=== PATIENT | female | born 1995 | race African-American/Black ===

== ENCOUNTER 2016-12-04 18:50 | Emergency (ER) | payer OTHER ==
[2016-12-04 19:44] VITALS: BP 124/85
--- NOTE | 2016-12-04 20:16 | UC ---
Complaint Female HPI - HPI Summary HPI Summary: pt presents with c/o "pelvic cramping" X 1-2 days. Pt reports that LMP was on 11/23/16 that lasted 5 days typical cycle is 7 days. Pt sattes that she "spotted" bright red blood for 2-3 days needing to wear a feminine pad and changing it only once. Denies unusual vaginal discharge or change in sexual partners. c/o of pelvic cramping that are "similar to menstrual cramps" - History Of Current Complaint Chief Complaint: UCGU Stated Complaint: PERSONAL Time Seen by Provider: 12/04/16 19:39 Hx Obtained From: Patient Hx Last Menstrual Period: 11/23/16 ?: No Onset/Duration: Gradual Onset, Lasting Days Timing: Intermittent, Lasting Minutes Severity Initially: Mild Severity Currently: Mild Character: Cramping Associated Signs And Symptoms: Positive: Negative - Allergies/Home Medications Allergies/Adverse Reactions: Allergies Allergy/AdvReac Type Severity Reaction Status Date / Time Dicyclomine [From Bentyl] Allergy Shakes Verified 12/04/16 19:40 laxative Allergy Altered Uncoded 12/04/16 19:40 Mental Status PMH/Surg Hx/FS Hx/Imm Hx - Additional Past Medical History Additional PMH: ovarian cyst Previously Healthy: Yes Endocrine History Of: Reports: Diabetes - pre Denies: Thyroid Disease Cardiovascular History Of: Denies: Cardiac Disorders, Hypertension Respiratory History Of: Reports: Asthma - Surgical History Surgical History: Yes Surgery Procedure, Year, and Place: D&C, 2012, [facility] [place] - Family History Known Family History: Positive: None, Cardiac Disease, Hypertension, Diabetes - Social History Alcohol Use: Occasionally Substance Use Type: None Smoking Status (MU): Never Smoked Tobacco - Immunization History Most Recent Influenza Vaccination: Not the 2015/2016 Season Review of Systems Constitutional: Negative Skin: Negative Eyes: Negative ENT: Negative Respiratory: Negative Cardiovascular: Negative Gastrointestinal: Abdominal Pain Genitourinary: Other - cramping Motor: Negative Neurovascular: Negative Musculoskeletal: Negative Neurological: Negative Psychological: Negative All Other Systems Reviewed And Are Negative: Yes Physical Exam Triage Information Reviewed: Yes Appearance: Well-Appearing Vital Signs: Initial Vital Signs Temp 97.9 F 12/04/16 19:37 Pulse 88 12/04/16 19:37 Resp 16 12/04/16 19:37 BP 124/85 12/04/16 19:37 Pulse Ox 100 12/04/16 19:37 Vital Signs Reviewed: Yes Neck exam: Normal Respiratory Exam: Normal Cardiovascular Exam: Normal Abdomen Description: Positive: Other: - negative CVA bilateral Musculoskeletal Exam: Normal Neurological Exam: Normal Psychological Exam: Normal Skin Exam: Normal Complaint Female Dx - Differential Dx/Diagnosis Differential Diagnosis/HQI/PQRI: Ovarian Cyst, Other Provider Diagnoses: pelvic pain. ovarian cyst history Discharge - Discharge Plan Condition: Stable Disposition: HOME Patient Education Materials: Pelvic Pain in Women (ED) Referrals: Luis A Leonard MD [Medical Doctor] - Felice Sommers PA [Primary Care Provider] -
== END 2016-12-04 20:25 | disposition home or self-care (01) ==
LOC: UCCORT 18:50
DX: R10.2 Pelvic and perineal pain (principal); R73.03 Prediabetes; Z87.42 Personal history of other diseases of the female genital tract; Z88.8 Allergy status to other drugs, medicaments and biological substances
CPT/HCPCS: 81025; 87491; 87591; 99211; G0463

== ENCOUNTER 2017-01-22 11:32 | Emergency (ER) | payer OTHER ==
[2017-01-22 12:40] VITALS: BP 109/62
--- NOTE | 2017-01-22 13:05 | UC ---
Respiratory Complaint HPI - HPI Summary HPI Summary: 21 yo female with asthma presents with a 5 day hx of sinus symptoms now with chest tightness/cough/and has had to use her rescue inhaler - History of Current Complaint Chief Complaint: UCRespiratory Stated Complaint: ASTHMA FLARE UP,SOB Time Seen by Provider: 01/22/17 12:52 Hx Obtained From: Patient Hx Last Menstrual Period: 12/23/16 Onset/Duration: Gradual Onset, Lasting Hours Timing: Constant Severity Initially: Moderate Severity Currently: Mild Pain Intensity: 0 Pain Scale Used: 0-10 Numeric Character: Cough: Nonproductive Aggravating Factors: Exertion, Deep Breaths Alleviating Factors: Bronchodilator Associated Signs And Symptoms: Positive: Wheezing, Nasal Congestion, Sinus Discomfort Related History: Similar Episode/Dx as: - bronchitis - Allergies/Home Medications Allergies/Adverse Reactions: Allergies Allergy/AdvReac Type Severity Reaction Status Date / Time Dicyclomine [From Bentyl] Allergy Shakes Verified 01/22/17 12:31 laxative Allergy Altered Uncoded 01/22/17 12:31 Mental Status PMH/Surg Hx/FS Hx/Imm Hx Previously Healthy: Yes Endocrine History Of: Reports: Diabetes - pre Denies: Thyroid Disease Cardiovascular History Of: Denies: Cardiac Disorders, Hypertension Respiratory History Of: Reports: Asthma, Bronchitis, Pneumonia - Surgical History Surgical History: Yes Surgery Procedure, Year, and Place: D&C, 2012, [facility] [place] - Family History Known Family History: Positive: Cardiac Disease, Hypertension, Diabetes, Respiratory Disease - Social History Alcohol Use: None Substance Use Type: None Smoking Status (MU): Former Smoker Type: Cigarettes Have You Smoked in the Last Year: Yes When Did the Patient Quit Smoking/Using Tobacco: 6 MONTHS AGO - Immunization History Most Recent Influenza Vaccination: JUL 2016 Review of Systems Constitutional: Negative Skin: Negative Eyes: Negative ENT: Nasal Discharge Respiratory: Cough Cardiovascular: Negative Gastrointestinal: Negative Genitourinary: Negative Motor: Negative Neurovascular: Negative Musculoskeletal: Negative Neurological: Negative Psychological: Negative All Other Systems Reviewed And Are Negative: Yes Physical Exam Triage Information Reviewed: Yes Appearance: Well-Appearing, No Pain Distress, Well-Nourished Vital Signs: Initial Vital Signs Temp 98.4 F 01/22/17 12:32 Pulse 70 01/22/17 12:32 Resp 20 01/22/17 12:32 BP 109/62 01/22/17 12:32 Pulse Ox 100 01/22/17 12:32 Vital Signs Reviewed: Yes Eyes: Positive: Conjunctiva Clear ENT Exam: Normal Dental Exam: Normal Neck: Positive: Supple, Nontender Respiratory: Positive: No respiratory distress, No accessory muscle use, Wheezing - with forced expiration only Cardiovascular: Positive: RRR Abdomen Description: Positive: No Organomegaly, Soft Bowel Sounds: Positive: Present Musculoskeletal: Positive: ROM Intact, No Edema Neurological: Positive: Alert Psychological Exam: Normal Skin Exam: Normal UC Diagnostic Evaluation - Laboratory O2 Sat by Pulse Oximetry: 100 - normal/not hypoxic Respiratory Course/Dx - Differential Dx/Diagnosis Provider Diagnoses: acute asthmatic bronchitis Discharge - Discharge Plan Condition: Stable Disposition: HOME Prescriptions: Azithromycin TAB* [Zithromax TAB*] 250 mg PO DAILY #6 tab Prednisone [Deltasone] 40 mg PO DAILY #10 tab Patient Education Materials: Acute Bronchitis (ED) Forms: *Work Release Referrals: CORNELIO Cortes [Primary Care Provider] - If Needed (I suggest recheck next week) Additional Instructions: use your inhaler as directed return for worsening symptoms
== END 2017-01-22 13:10 | disposition home or self-care (01) ==
LOC: UCCORT 11:32
DX: J45.909 Unspecified asthma, uncomplicated (principal); R73.03 Prediabetes; Z87.891 Personal history of nicotine dependence
CPT/HCPCS: 99212; G0463

== ENCOUNTER 2017-01-28 16:32 | Emergency (ER) | payer OTHER ==
[2017-01-28] MEDS ORDERED: NS 0.9% 1000 ML* 1,000 ML IV ONE (17:54)
[2017-01-28] MEDS ORDERED: Ondansetron INJ* 2 MG/ML VIAL IV ONE (17:54)
[2017-01-28 18:15] LABS: Hematocrit 41 % (35-47); Hemoglobin 13.5 g/dl (12.0-16.0); Mean Corpuscular HGB Conc 33 g/dl (31-36); Mean Corpuscular Hemoglobin 30 pg (27-31); Mean Corpuscular Volume 90 fL (80-97); Mean Platelet Volume 7 um3 (7.4-10.4); Red Blood Count 4.53 10^6/ul (4.0-5.4); Red Cell Distribution Width 12 % (10.5-15); White Blood Count 10.2 10^3/ul (3.5-10.8)
[2017-01-28 18:18] LABS: Urine Bilirubin Negative (Negative); Urine Glucose Negative (Negative); Urine Nitrite Negative (Negative)
[2017-01-28 18:33] LABS: ALT 14 U/L (7-52); AST 15 U/L (13-39); Albumin 4.4 g/dL (3.2-5.2); Alkaline Phosphatase 59 U/L (34-104); Anion Gap 1 mmol/L (2-11); BUN/Creatinine Ratio 11.3 (8-20); Blood Urea Nitrogen 9 mg/dL (6-24); CO2 Carbon Dioxide 28 mmol/L (22-32); Calcium 9.6 mg/dL (8.6-10.3); Chloride 103 mmol/L (101-111); EGFR African American 114.3 (>60); EGFR Non-African American 88.9 (>60); Globulin 3.9 g/dL (2-4); Glucose 78 mg/dL (70-100); Lipase 28 U/L (11.0-82.0); Potassium 3.6 mmol/L (3.5-5.0); Sodium 132 mmol/L (133-145); Total Protein 8.3 g/dL (6.4-8.9)
--- NOTE | 2017-01-28 18:41 | ED ---
Abdominal Pain/Female - HPI Summary HPI Summary: 21F presents with RLQ pain for about a week. She admits to n/v. She states this is similar to the pain has had with ovarian cyst. She states menses is a week late. She denies any diarrhea or constipation. She also admits to urinary frequency and urgency. She denies any hematuria or dysuria. She states that pain has not changed locations. She denies any previous abdominal surgeries. She is concern potentially . She denies any vaginal discharge or history of STDs. - History of Current Complaint Chief Complaint: EDAbdPain Stated Complaint: ABD PAIN/VOMITING Time Seen by Provider: 01/28/17 17:50 Hx Last Menstrual Period: 12/23/16 Allergies/Adverse Reactions: Allergies Allergy/AdvReac Type Severity Reaction Status Date / Time Dicyclomine [From Bentyl] Allergy Shakes Verified 01/22/17 12:31 laxative Allergy Altered Uncoded 01/22/17 12:31 Mental Status PMH/Surg Hx/FS Hx/Imm Hx Endocrine/Hematology History: Reports: Hx Diabetes - pre Denies: Hx Thyroid Disease Cardiovascular History: Denies: Hx Hypertension Respiratory History: Reports: Hx Asthma, Hx Pneumonia - Surgical History Surgery Procedure, Year, and Place: D&C, 2012, [facility] [place] Infectious Disease History: No Infectious Disease History: Denies: Traveled Outside the [place] in Last 30 Days - Family History Known Family History: Positive: Cardiac Disease, Hypertension, Diabetes, Respiratory Disease - Social History Alcohol Use: None Substance Use Type: Reports: None Smoking Status (MU): Former Smoker Type: Cigarettes Have You Smoked in the Last Year: Yes Review of Systems Negative: Fever Negative: Chest Pain Negative: Shortness Of Breath Positive: Abdominal Pain - RLQ pain, Vomiting, Nausea. Negative: Diarrhea Positive: frequency. Negative: dysuria All Other Systems Reviewed And Are Negative: Yes Physical Exam Triage Information Reviewed: Yes Vital Signs On Initial Exam: Initial Vitals Temp Pulse Resp BP Pulse Ox 98.7 F 101 20 129/85 100 01/28/17 16:39 01/28/17 16:39 01/28/17 16:39 01/28/17 16:39 01/28/17 16:39 Vital Signs Reviewed: Yes Appearance: Positive: Well-Appearing Skin: Positive: Warm, Dry Head/Face: Positive: Normal Head/Face Inspection Eyes: Positive: Normal, Conjunctiva Clear ENT: Positive: Normal ENT inspection, Pharynx normal, TMs normal Respiratory/Lung Sounds: Positive: Clear to Auscultation, Breath Sounds Present Cardiovascular: Positive: Normal, RRR Abdomen Description: Positive: Soft, Other: - mild tenderness in rlq, no rebound , neg rovsings, obturator. Negative: Guarding Bowel Sounds: Positive: Present Diagnostics - Vital Signs Vital Signs Temp Pulse Resp BP Pulse Ox 01/28/17 18:11 98.7 F 73 22 110/71 100 01/28/17 16:39 98.7 F 101 20 129/85 100 - Laboratory Lab Results: Lab Results 01/28/17 01/28/17 01/28/17 Range/Units 18:05 18:05 18:05 WBC 10.2 (3.5-10.8) 10^3/ul RBC 4.53 (4.0-5.4) 10^6/ul Hgb 13.5 (12.0-16.0) g/dl Hct 41 (35-47) % MCV 90 (80-97) fL MCH 30 (27-31) pg MCHC 33 (31-36) g/dl RDW 12 (10.5-15) % Plt Count 346 (150-450) 10^3/ul MPV 7 L (7.4-10.4) um3 Neut % (Auto) 43.4 (38-83) % Lymph % (Auto) 40.8 (25-47) % Dickinson % (Auto) 10.9 H (1-9) % Eos % (Auto) 3.6 (0-6) % Baso % (Auto) 1.3 (0-2) % Absolute Neuts (auto) 4.4 (1.5-7.7) 10^3/ul Absolute Lymphs (auto) 4.1 (1.0-4.8) 10^3/ul Absolute Monos (auto) 1.1 H (0-0.8) 10^3/ul Absolute Eos (auto) 0.4 (0-0.6) 10^3/ul Absolute Basos (auto) 0.1 (0-0.2) 10^3/ul Absolute Nucleated RBC 0.01 10^3/ul Nucleated RBC % 0.1 Sodium 132 L (133-145) mmol/L Potassium 3.6 (3.5-5.0) mmol/L Chloride 103 (101-111) mmol/L Carbon Dioxide 28 (22-32) mmol/L Anion Gap 1 L (2-11) mmol/L BUN 9 (6-24) mg/dL Creatinine 0.80 (0.51-0.95) mg/dL Est GFR ( Amer) 114.3 (>60) Est GFR (Non-Af Amer) 88.9 (>60) BUN/Creatinine Ratio 11.3 (8-20) Glucose 78 (70-100) mg/dL Calcium 9.6 (8.6-10.3) mg/dL Total Bilirubin 0.30 (0.2-1.0) mg/dL AST 15 (13-39) U/L ALT 14 (7-52) U/L Alkaline Phosphatase 59 (34-104) U/L C-React Prot High Sens 0.48 mg/L Total Protein 8.3 (6.4-8.9) g/dL Albumin 4.4 (3.2-5.2) g/dL Globulin 3.9 (2-4) g/dL Albumin/Globulin Ratio 1.1 (1-3) Lipase 28 (11.0-82.0) U/L Beta HCG, Quant Pending Urine Color Straw Urine Appearance Clear Urine pH 7.0 (5-9) Ur Specific [place] 1.008 L (1.010-1.030) Urine Protein Negative (Negative) Urine Ketones Negative (Negative) Urine Blood Negative (Negative) Urine Nitrate Negative (Negative) Urine Bilirubin Negative (Negative) Urine Urobilinogen Negative (Negative) Ur Leukocyte Esterase Negative (Negative) Urine Glucose Negative (Negative) Result Diagrams: 01/28/17 18:05 01/28/17 18:05 Lab Statement: Any lab studies that have been ordered have been reviewed, and results considered in the medical decision making process. - Ultrasound No standard instances Ultrasound Interpretation: No Acute Changes - IMPRESSION: THE FLUID MOST CONSISTENT WITH PHYSIOLOGIC FREE FLUID. MULTIPLE SMALL FOLLICLES Ultrasound Interpretation Completed By: Radiologist Abdominal Pain Fem Course/Dx - Course Course Of Treatment: 21F presents with RLQ pain, n/v, urinary frequency for a week. states similiar to pain had with ovarian cyst. on exam mild tenderness in RLQ with no rebound, neg rovsings. labs: normal, u/a normal, u/s normal no cyst. discussed doing a pelvic but patient states does not believe has STD and would not like a pelvic exam. discussed results with patient. stated that labs do not support appendicitis but only definitive test is to do CT. patient states would rather observe and if gets worst will come back for CT. gave zofran for nausea and told to follow up with primary. patient understands and agrees with plan - Diagnoses Differential Diagnosis: Positive: Appendicitis, Ovarian Cyst, Urinary Tract Infection Provider Diagnoses: Abdominal pain Discharge - Discharge Plan Condition: Good Disposition: HOME Prescriptions: Ondansetron ODT TAB* [Zofran 4 MG Odt TAB*] 4 mg PO Q6H PRN #12 tab.odt PRN Reason: Nausea Patient Education Materials: Abdominal Pain (ED) Referrals: CORNELIO Cortes [Primary Care Provider] - Additional Instructions: Take zofran every 6 hours as needed for nausea Drink small amounts of fluid as tolerated When able to eat follow BRAT diet: Bananas, rice, applesauce, toast Take ibuprofen or Tylenol for pain as needed every 6 hours Follow up with primary within 5 days Return to ED if develop fever, abdominal pain becomes severe or any new or worsening symptoms
--- NOTE | 2017-01-28 19:46 | RAD ---
INDICATION: Right lower quadrant pain COMPARISON: None TECHNIQUE: Longitudinal and transverse transvaginal scans of the pelvis were obtained. FINDINGS: Uterus: The uterus is normal in size. There are no focal masses. The uterus measures 5.6 x 3.3 x 4.7 cm. The uterus is retroflexed. Endometrial thickness: The endometrial thickness is measured at 0.7 cm. . Free fluid: There is free fluid in both adnexa. Ovaries: The ovaries are normal in size. The right ovary measures 3.0 x 1.7 x 2.3 cm. The left ovary measures 3.2 x 2.1 x 2.7 cm. There are small follicles bilaterally.. Doppler interrogation demonstrates flow to each ovary. Other: None IMPRESSION: THE FLUID MOST CONSISTENT WITH PHYSIOLOGIC FREE FLUID. MULTIPLE SMALL FOLLICLES
[2017-01-28 20:21] VITALS: BP 114/65
== END 2017-01-28 20:20 | disposition home or self-care (01) ==
LOC: ED 16:32
DX: R10.31 Right lower quadrant pain (principal); Z87.891 Personal history of nicotine dependence; R73.03 Prediabetes; J45.909 Unspecified asthma, uncomplicated; R11.0 Nausea
CPT/HCPCS: 36415; 76830; 80053; 81003; 83690; 84702; 85025; 86141; 96360; 96374; 99283; J2405

== ENCOUNTER 2017-04-19 01:49 | Emergency (ER) | payer OTHER ==
--- NOTE | 2017-04-19 02:33 | ED ---
Abdominal Pain/Female - HPI Summary HPI Summary: 22 female presents with complaints of lower abdominal pain that began 1 week ago and has worsened over the last day. She was unable to sleep tonight due to the pain. She describes it as sharp and stabbing. Worse over suprapubic area but also pain on the right and left lower quadrants. Admits to spotting that began 2 days ago. LMP March 12. Unknown status. LBM was today and normal without blood. Denies nausea/vomiting, diarrhea, constipation, fever/ chills, difficulty breathing and chest pain. Tried taking ibuprofen 800mg at 5pm today without relief. Has history of ovarian cysts. Was 2 years ago and had a D&C. Has history of ovarian cysts, last one ~1 year ago. No other medical problems. No medications. Denies urinary symptoms, genitalia symptoms, vaginal discharge, odor or itching. Denies STD history. Gets testing at OBGYN. Has been eating and drinking. - History of Current Complaint Hx Obtained From: Patient Hx Last Menstrual Period: 12/23/16 Onset/Duration: Sudden Onset, Lasting Weeks, Still Present, Worse Since Timing: Constant Severity Initially: Mild Severity Currently: Moderate Pain Intensity: 8 Pain Scale Used: 0-10 Numeric Location: Discrete At: RLQ, Discrete At: LLQ, Suprapubic Radiates: Yes Radiates to: Back - lower back Character: Sharp, Cramping, Other: - stabbing Aggravating Factor(s): Nothing Alleviating Factor(s): Other: - warm bath Associated Signs and Symptoms: Positive: Back Pain, Vaginal Bleeding - "spotting ". Negative: Fever, Chest Pain, Constipation, Blood in Stool, Urinary Symptoms , Vaginal Discharge, Nausea, Vomiting, Diarrhea - Risk Factors Ovarian Torsion Risk Factor: Ovarian Cysts/Tumors <Maribel Luna - Last Filed: 04/19/17 02:39> <Luis A Brooks - Last Filed: 04/19/17 05:59> - History of Current Complaint Chief Complaint: EDAbdPain Stated Complaint: ABD PAIN/SPOTTING Time Seen by Provider: 04/19/17 02:17 Allergies/Adverse Reactions: Allergies Allergy/AdvReac Type Severity Reaction Status Date / Time Dicyclomine [From Bentyl] Allergy Shakes Verified 04/19/17 02:21 laxative Allergy Altered Uncoded 04/19/17 02:21 Mental Status PMH/Surg Hx/FS Hx/Imm Hx Endocrine/Hematology History: Reports: Hx Diabetes - pre Denies: Hx Thyroid Disease Cardiovascular History: Denies: Hx Hypertension Respiratory History: Reports: Hx Asthma, Hx Pneumonia - Surgical History Surgery Procedure, Year, and Place: D&C, 2012, [facility] - Immunization History Date of Tetanus Vaccine: unk Date of Influenza Vaccine: none Immunizations Up to Date: Yes Infectious Disease History: No Infectious Disease History: Denies: Traveled Outside the [place] in Last 30 Days - Family History Known Family History: Positive: Cardiac Disease, Hypertension, Diabetes, Respiratory Disease - Social History Alcohol Use: None Substance Use Type: Reports: None Smoking Status (MU): Former Smoker Type: Cigarettes Have You Smoked in the Last Year: Yes <Maribel Luna - Last Filed: 04/19/17 02:39> Review of Systems Constitutional: Negative Cardiovascular: Negative Respiratory: Negative Positive: Abdominal Pain Genitourinary: Negative Musculoskeletal: Negative Neurological: Negative All Other Systems Reviewed And Are Negative: Yes <Maribel Luna - Last Filed: 04/19/17 02:39> All Other Systems Reviewed And Are Negative: Yes <Luis A Brooks - Last Filed: 04/19/17 05:59> Physical Exam Triage Information Reviewed: Yes Vital Signs On Initial Exam: Initial Vitals Temp Pulse Resp BP Pulse Ox 97.4 F 81 20 142/88 100 04/19/17 01:51 04/19/17 01:51 04/19/17 01:51 04/19/17 01:51 04/19/17 01:51 elevated BP noted, patient was in pain. Vital Signs Reviewed: Yes Appearance: Positive: Well-Appearing, Well-Nourished, Pain Distress - mild Skin: Positive: Skin Color Reflects Adequate Perfusion, Dry, Other - no belgica signs, open wounds or crepitus. Negative: Erythema @ Head/Face: Positive: Normal Head/Face Inspection Eyes: Positive: Normal, Conjunctiva Clear ENT: Positive: Normal ENT inspection, Hearing grossly normal, Pharynx normal Neck: Positive: Supple, Nontender, No Lymphadenopathy Respiratory/Lung Sounds: Positive: Clear to Auscultation, Breath Sounds Present. Negative: Decreased Breath Sounds, Rales, Rhonchi, Wheezes Cardiovascular: Positive: Normal, RRR, Pulses are Symmetrical in both Upper and Lower Extremities. Negative: Murmur, Rub Abdomen Description: Positive: No Organomegaly, Soft, CVA Tenderness (L), Guarding, McBurney's Point Tenderness, Other: - tenderness on palpation of suprapubic area, RLQ and LLQ, positive psoas, negative rebound and rovsings.. Negative: Distended, Peritoneal Signs, Pulsatile Mass Bowel Sounds: Positive: Present Pelvic Exam: Positive: external exam normal - per patient, deferred pelvic, active bleeding - "spotting dark red in color" Musculoskeletal: Positive: Normal, Strength/ROM Intact Neurological: Positive: Normal, Sensory/Motor Intact, Alert, Oriented to Person Place, Time Psychiatric: Positive: Normal - [place] Coma Scale Coma Scale Total: 15 <Maribel Luna - Last Filed: 04/19/17 02:39> Vital Signs On Initial Exam: Initial Vitals Temp Pulse Resp BP Pulse Ox 97.4 F 81 20 142/88 100 04/19/17 01:51 04/19/17 01:51 04/19/17 01:51 04/19/17 01:51 04/19/17 01:51 <Luis A Brooks - Last Filed: 04/19/17 05:59> Diagnostics - Vital Signs Vital Signs Temp Pulse Resp BP Pulse Ox 04/19/17 02:16 97.4 F 81 20 142/88 100 04/19/17 01:51 97.4 F 81 20 142/88 100 <Maribel Luna - Last Filed: 04/19/17 02:39> - Vital Signs Vital Signs Temp Pulse Resp BP Pulse Ox 04/19/17 05:51 97.7 F 75 18 113/62 04/19/17 02:16 97.4 F 81 20 142/88 100 04/19/17 01:51 97.4 F 81 20 142/88 100 - Laboratory Lab Results: Lab Results 04/19/17 04/19/17 04/19/17 Range/Units 02:10 02:30 02:30 WBC 10.4 (3.5-10.8) 10^3/ul RBC 4.15 (4.0-5.4) 10^6/ul Hgb 12.5 (12.0-16.0) g/dl Hct 37 (35-47) % MCV 90 (80-97) fL MCH 30 (27-31) pg MCHC 34 (31-36) g/dl RDW 12 (10.5-15) % Plt Count 349 (150-450) 10^3/ul MPV 8 (7.4-10.4) um3 Neut % (Auto) 44.3 (38-83) % Lymph % (Auto) 37.4 (25-47) % [place] % (Auto) 7.9 (1-9) % Eos % (Auto) 8.7 H (0-6) % Baso % (Auto) 1.7 (0-2) % Absolute Neuts (auto) 4.6 (1.5-7.7) 10^3/ul Absolute Lymphs (auto) 3.9 (1.0-4.8) 10^3/ul Absolute Monos (auto) 0.8 (0-0.8) 10^3/ul Absolute Eos (auto) 0.9 H (0-0.6) 10^3/ul Absolute Basos (auto) 0.2 (0-0.2) 10^3/ul Absolute Nucleated RBC 0.01 10^3/ul Nucleated RBC % 0.1 Sodium 137 (133-145) mmol/L Potassium 3.7 (3.5-5.0) mmol/L Chloride 104 (101-111) mmol/L Carbon Dioxide 26 (22-32) mmol/L Anion Gap 7 (2-11) mmol/L BUN 15 (6-24) mg/dL Creatinine 0.82 (0.51-0.95) mg/dL Est GFR ( Amer) 110.1 (>60) Est GFR (Non-Af Amer) 85.6 (>60) BUN/Creatinine Ratio 18.3 (8-20) Glucose 97 (70-100) mg/dL Lactic Acid (0.5-2.0) mmol/L Calcium 9.2 (8.6-10.3) mg/dL Total Bilirubin 0.30 (0.2-1.0) mg/dL AST 16 (13-39) U/L ALT 16 (7-52) U/L Alkaline Phosphatase 61 (34-104) U/L C-Reactive Protein 2.05 (< 5.00) mg/L Total Protein 7.9 (6.4-8.9) g/dL Albumin 4.3 (3.2-5.2) g/dL Globulin 3.6 (2-4) g/dL Albumin/Globulin Ratio 1.2 (1-3) Lipase 27 (11.0-82.0) U/L Beta HCG, Quant < 0.60 mIU/mL Urine Color Yellow Urine Appearance Clear Urine pH 5.0 (5-9) Ur Specific [place] 1.035 H (1.010-1.030) Urine Protein 1+(30 mg/dl) H (Negative) Urine Ketones Negative (Negative) Urine Blood 3+ H (Negative) Urine Nitrate Negative (Negative) Urine Bilirubin Negative (Negative) Urine Urobilinogen Negative (Negative) Ur Leukocyte Esterase Negative (Negative) Urine WBC (Auto) Trace(0-5/hpf) (Absent) Urine RBC (Auto) 3+(>10/hpf) H (Absent) Ur Squamous Epith Cells Present H (Absent) Urine Bacteria Absent (Absent) Urine Glucose Negative (Negative) Urine Ascorbic Acid * H (Negative) 04/19/17 Range/Units 02:30 WBC (3.5-10.8) 10^3/ul RBC (4.0-5.4) 10^6/ul Hgb (12.0-16.0) g/dl Hct (35-47) % MCV (80-97) fL MCH (27-31) pg MCHC (31-36) g/dl RDW (10.5-15) % Plt Count (150-450) 10^3/ul MPV (7.4-10.4) um3 Neut % (Auto) (38-83) % Lymph % (Auto) (25-47) % [place] % (Auto) (1-9) % Eos % (Auto) (0-6) % Baso % (Auto) (0-2) % Absolute Neuts (auto) (1.5-7.7) 10^3/ul Absolute Lymphs (auto) (1.0-4.8) 10^3/ul Absolute Monos (auto) (0-0.8) 10^3/ul Absolute Eos (auto) (0-0.6) 10^3/ul Absolute Basos (auto) (0-0.2) 10^3/ul Absolute Nucleated RBC 10^3/ul Nucleated RBC % Sodium (133-145) mmol/L Potassium (3.5-5.0) mmol/L Chloride (101-111) mmol/L Carbon Dioxide (22-32) mmol/L Anion Gap (2-11) mmol/L BUN (6-24) mg/dL Creatinine (0.51-0.95) mg/dL Est GFR ( Amer) (>60) Est GFR (Non-Af Amer) (>60) BUN/Creatinine Ratio (8-20) Glucose (70-100) mg/dL Lactic Acid 1.2 (0.5-2.0) mmol/L Calcium (8.6-10.3) mg/dL Total Bilirubin (0.2-1.0) mg/dL AST (13-39) U/L ALT (7-52) U/L Alkaline Phosphatase (34-104) U/L C-Reactive Protein (< 5.00) mg/L Total Protein (6.4-8.9) g/dL Albumin (3.2-5.2) g/dL Globulin (2-4) g/dL Albumin/Globulin Ratio (1-3) Lipase (11.0-82.0) U/L Beta HCG, Quant mIU/mL Urine Color Urine Appearance Urine pH (5-9) Ur Specific [place] (1.010-1.030) Urine Protein (Negative) Urine Ketones (Negative) Urine Blood (Negative) Urine Nitrate (Negative) Urine Bilirubin (Negative) Urine Urobilinogen (Negative) Ur Leukocyte Esterase (Negative) Urine WBC (Auto) (Absent) Urine RBC (Auto) (Absent) Ur Squamous Epith Cells (Absent) Urine Bacteria (Absent) Urine Glucose (Negative) Urine Ascorbic Acid (Negative) Result Diagrams: 04/19/17 02:30 04/19/17 02:30 Lab Statement: Any lab studies that have been ordered have been reviewed, and results considered in the medical decision making process. <Luis A Brooks - Last Filed: 04/19/17 05:59> Re-Evaluation - Re-Evaluation First Eval Change: Improved - pt does not want to wait for ct results <Luis A Brooks - Last Filed: 04/19/17 05:59> Abdominal Pain Fem Course/Dx - Course Course Of Treatment: full work up ordered. given toradol and fluids for pain. patient was signed out to Dr Brooks at 2:45pm. - Provider Notifications Discussed Care Of Patient With: Dr Brooks Time Discussed With Above Provider: 02:45 <Maribel Luna - Last Filed: 04/19/17 02:39> <Luis A Brooks - Last Filed: 04/19/17 05:59> - Diagnoses Provider Diagnoses: Abdominal pain Discharge - Discharge Plan Discharge Disposition Comment: signed out to Dr Brooks at 2:45am <Maribel Luna - Last Filed: 04/19/17 02:39> <Luis A Brooks - Last Filed: 04/19/17 05:59> - Discharge Plan Condition: Stable Disposition: HOME Patient Education Materials: Abdominal Pain (ED) Referrals: CORNELIO Cortes [Primary Care Provider] - Additional Instructions: Please return if you experience any new or worsening symptoms.
[2017-04-19] MEDS ORDERED: Ketorolac INJ* 30 MG/ML 1 ML VIAL IV ONE (02:36)
[2017-04-19] MEDS ORDERED: NS 0.9% 1000 ML* 1,000 ML IV ONE (02:36)
[2017-04-19 02:48] LABS: Urine Bacteria Absent (Absent); Urine Bilirubin Negative (Negative); Urine Glucose Negative (Negative); Urine Nitrite Negative (Negative)
[2017-04-19 02:55] LABS: Hematocrit 37 % (35-47); Hemoglobin 12.5 g/dl (12.0-16.0); Mean Corpuscular HGB Conc 34 g/dl (31-36); Mean Corpuscular Hemoglobin 30 pg (27-31); Mean Corpuscular Volume 90 fL (80-97); Mean Platelet Volume 8 um3 (7.4-10.4); Red Blood Count 4.15 10^6/ul (4.0-5.4); Red Cell Distribution Width 12 % (10.5-15); White Blood Count 10.4 10^3/ul (3.5-10.8)
[2017-04-19 03:00] LABS: ALT 16 U/L (7-52); AST 16 U/L (13-39); Albumin 4.3 g/dL (3.2-5.2); Alkaline Phosphatase 61 U/L (34-104); Anion Gap 7 mmol/L (2-11); BUN/Creatinine Ratio 18.3 (8-20); Blood Urea Nitrogen 15 mg/dL (6-24); C Reactive Protein 2.05 mg/L (< 5.00); CO2 Carbon Dioxide 26 mmol/L (22-32); Calcium 9.2 mg/dL (8.6-10.3); Chloride 104 mmol/L (101-111); EGFR African American 110.1 (>60); EGFR Non-African American 85.6 (>60); Globulin 3.6 g/dL (2-4); Glucose 97 mg/dL (70-100); Lipase 27 U/L (11.0-82.0); Potassium 3.7 mmol/L (3.5-5.0); Sodium 137 mmol/L (133-145); Total Protein 7.9 g/dL (6.4-8.9)
[2017-04-19] MEDS ORDERED: Iohexol 300* (CONTRAST) 10 ML SDV IV ONE (03:51)
--- NOTE | 2017-04-19 05:47 | PN ---
Sujatha Duke SooYoung, scribed for Luis A Brooks MD on 04/19/17 at 0342 . Progress Note - Progress Note Note: Sign out from JOHANNE Luna at shift change, pending UA and lab results. Pt given fluids and Toradol in ED. 0330: Met pt. and discussed UA results. Ordered A/P CT with contrast. 0545: Pt is requesting DC before imaging results have been read. Will D/C home. DX: ABD PAIN. Lab Results - Lab Results Lab Results: 04/19/17 04/19/17 04/19/17 02:10 02:30 02:30 WBC 10.4 RBC 4.15 Hgb 12.5 Hct 37 MCV 90 MCH 30 MCHC 34 RDW 12 Plt Count 349 MPV 8 Neut % (Auto) 44.3 Lymph % (Auto) 37.4 [place] % (Auto) 7.9 Eos % (Auto) 8.7 H Baso % (Auto) 1.7 Absolute Neuts (auto) 4.6 Absolute Lymphs (auto) 3.9 Absolute Monos (auto) 0.8 Absolute Eos (auto) 0.9 H Absolute Basos (auto) 0.2 Absolute Nucleated RBC 0.01 Nucleated RBC % 0.1 Sodium 137 Potassium 3.7 Chloride 104 Carbon Dioxide 26 Anion Gap 7 BUN 15 Creatinine 0.82 Est GFR ( Amer) 110.1 Est GFR (Non-Af Amer) 85.6 BUN/Creatinine Ratio 18.3 Glucose 97 Lactic Acid Calcium 9.2 Total Bilirubin 0.30 AST 16 ALT 16 Alkaline Phosphatase 61 C-Reactive Protein 2.05 Total Protein 7.9 Albumin 4.3 Globulin 3.6 Albumin/Globulin Ratio 1.2 Lipase 27 Beta HCG, Quant < 0.60 Urine Color Yellow Urine Appearance Clear Urine pH 5.0 Ur Specific [place] 1.035 H Urine Protein 1+(30 mg/dl) H Urine Ketones Negative Urine Blood 3+ H Urine Nitrate Negative Urine Bilirubin Negative Urine Urobilinogen Negative Ur Leukocyte Esterase Negative Urine WBC (Auto) Trace(0-5/hpf) Urine RBC (Auto) 3+(>10/hpf) H Ur Squamous Epith Cells Present H Urine Bacteria Absent Urine Glucose Negative Urine Ascorbic Acid * H 04/19/17 02:30 WBC RBC Hgb Hct MCV MCH MCHC RDW Plt Count MPV Neut % (Auto) Lymph % (Auto) [place] % (Auto) Eos % (Auto) Baso % (Auto) Absolute Neuts (auto) Absolute Lymphs (auto) Absolute Monos (auto) Absolute Eos (auto) Absolute Basos (auto) Absolute Nucleated RBC Nucleated RBC % Sodium Potassium Chloride Carbon Dioxide Anion Gap BUN Creatinine Est GFR ( Amer) Est GFR (Non-Af Amer) BUN/Creatinine Ratio Glucose Lactic Acid 1.2 Calcium Total Bilirubin AST ALT Alkaline Phosphatase C-Reactive Protein Total Protein Albumin Globulin Albumin/Globulin Ratio Lipase Beta HCG, Quant Urine Color Urine Appearance Urine pH Ur Specific [place] Urine Protein Urine Ketones Urine Blood Urine Nitrate Urine Bilirubin Urine Urobilinogen Ur Leukocyte Esterase Urine WBC (Auto) Urine RBC (Auto) Ur Squamous Epith Cells Urine Bacteria Urine Glucose Urine Ascorbic Acid The documentation as recorded by the Sujatha bolivar SooYoung accurately reflects the service I personally performed and the decisions made by Cecilia mcconnell David, MD.
[2017-04-19 05:52] VITALS: BP 113/62
--- NOTE | 2017-04-19 08:05 | RAD ---
CLINICAL HISTORY: Lower abdominal pain COMPARISON: None TECHNIQUE: Multiple contiguous axial CT scans were obtained of the abdomen and pelvis after the administration of intravenous contrast. Coronal and sagittal multiplanar reformations are submitted for review. Oral contrast was administered. Delayed images were obtained through the abdomen and pelvis. FINDINGS: LUNG BASES: The lung bases are clear. LIVER: The liver is normal in shape, size, contour, and attenuation. BILE DUCTS: There is no intrahepatic or extrahepatic biliary dilatation. GALLBLADDER: The gallbladder is normal, without pericholecystic inflammatory change. PANCREAS: The pancreas is normal, without mass or ductal dilatation. SPLEEN: Normal in size and appearance. UPPER GI TRACT: Evaluation of the gastrointestinal tract is limited by incomplete gastric distention. The upper GI tract is unremarkable. SMALL BOWEL AND MESENTERY: The small bowel is normal in contour, course, and caliber. There is no obstruction or dilatation. COLON: The colon is normal in contour, course, caliber. There is no pericolonic inflammatory change. There is a tubular, vermiform, hollow viscus that is blind ending, and originates from the cecum, consistent with a normal appendix. There is no periappendiceal inflammatory change. ADRENALS: Normal bilaterally. KIDNEYS: The kidneys are normal in shape, size, contour, and axis. There is no hydronephrosis or nephrolithiasis. BLADDER: The bladder is smooth in contour. PELVIC ORGANS: The uterus and adnexa are grossly normal for technique. AORTA: The aorta is normal. IVC: Unremarkable LYMPH NODES: There is no lymphadenopathy by size criteria. ABDOMINAL WALL: There is no evidence for abdominal wall hernia. BONES AND SOFT TISSUES: The bones and soft tissues are unremarkable. OTHER: None IMPRESSION: NO ACUTE CT PATHOLOGY OF THE VISUALIZED ABDOMEN OR PELVIS
== END 2017-04-19 05:51 | disposition home or self-care (01) ==
LOC: ED 01:49
DX: R10.32 Left lower quadrant pain (principal); R10.31 Right lower quadrant pain; R73.03 Prediabetes
CPT/HCPCS: 36415; 74177; 80053; 81003; 81015; 83605; 83690; 84702; 85025; 86140; 96374; 99282; J1885; Q9967

== ENCOUNTER 2017-05-31 15:51 | Emergency (ER) | payer SELFPAY ==
--- NOTE | 2017-05-31 17:00 | ED ---
Abdominal Pain/Female - HPI Summary HPI Summary: Patient with a history of ovarian cysts presents with RLQ pain, N/V x 3 weeks which is intermittent. Pain is 8/10 and limited to the RLQ without radiation. Pain is not worse or better with eating or drinking and worsens slightly with position. Endorses chance of but recent urine test at home negative. LMP 2 months ago which is abnormal for her. She endorses vomiting 1x daily, usually in the morning for 3 weeks. Denies constipation or diarrhea. Denies vaginal bleeding, urinary symptoms, discharge or back pain. PMHx includes D and C x 3 years ago and patient is pre-diabetic. History of anxiety but denies taking her prescribed medications regularly. PCP is in [place]. Denies smoking, ETOH or drug abuse. Denies weakness, aches, sweats, chills or fevers. - History of Current Complaint Chief Complaint: EDAbdPain Stated Complaint: LOWER ABD PAIN, Time Seen by Provider: 05/31/17 16:14 Hx Obtained From: Patient Hx Last Menstrual Period: 12/23/16 ?: No Onset/Duration: Gradual Onset Timing: Constant Severity Initially: Moderate Severity Currently: Moderate Pain Intensity: 9 Pain Scale Used: 0-10 Numeric Location: Discrete At: RLQ Radiates: No Character: Sharp, Cramping Aggravating Factor(s): Movement, Other: - position Alleviating Factor(s): Nothing Associated Signs and Symptoms: Positive: Nausea, Vomiting - Risk Factors Ectopic Risk Factor: Negative Ovarian Torsion Risk Factor: Reproductive Age, Ovarian Cysts/Tumors Allergies/Adverse Reactions: Allergies Allergy/AdvReac Type Severity Reaction Status Date / Time Dicyclomine [From Bentyl] Allergy Shakes Verified 04/19/17 02:21 laxative Allergy Altered Uncoded 04/19/17 02:21 Mental Status PMH/Surg Hx/FS Hx/Imm Hx Previously Healthy: Yes Endocrine/Hematology History: Reports: Hx Diabetes - prediabetic, diet controlled Denies: Hx Thyroid Disease Cardiovascular History: Denies: Hx Hypertension Respiratory History: Reports: Hx Asthma, Hx Pneumonia History: Denies: Hx Renal Disease - Surgical History Surgery Procedure, Year, and Place: D&C, 2012, [facility] - Immunization History Date of Tetanus Vaccine: unk Date of Influenza Vaccine: none Hx Pertussis Vaccination: No Immunizations Up to Date: Unable to Obtain/Confirm Infectious Disease History: No Infectious Disease History: Denies: Traveled Outside the [place] in Last 30 Days - Family History Known Family History: Positive: Cardiac Disease, Hypertension, Diabetes, Respiratory Disease - Social History Occupation: Unemployed Lives: With Family Alcohol Use: None Hx Substance Use: No Substance Use Type: Reports: None Smoking Status (MU): Former Smoker Type: Cigarettes Have You Smoked in the Last Year: Yes Review of Systems Constitutional: Negative Eyes: Negative Cardiovascular: Negative Respiratory: Negative Positive: Abdominal Pain - RLQ, Vomiting, Nausea Genitourinary: Negative Positive: no symptoms reported, see HPI, other - LMP x 2 months ago Musculoskeletal: Other Skin: Negative Neurological: Negative Positive: Anxious All Other Systems Reviewed And Are Negative: Yes Physical Exam Triage Information Reviewed: Yes Vital Signs On Initial Exam: Initial Vitals Temp Pulse Resp BP Pulse Ox 97.4 F 99 19 130/87 100 05/31/17 15:53 05/31/17 15:53 05/31/17 15:53 05/31/17 15:53 05/31/17 15:53 Vital Signs Reviewed: Yes Appearance: Positive: Well-Appearing, Well-Nourished Skin: Positive: Warm, Skin Color Reflects Adequate Perfusion Head/Face: Positive: Normal Head/Face Inspection Eyes: Positive: EOMI, KELLY, Conjunctiva Clear Neck: Positive: Supple, No Lymphadenopathy Respiratory/Lung Sounds: Positive: Clear to Auscultation, Breath Sounds Present Cardiovascular: Positive: Normal, RRR, Pulses are Symmetrical in both Upper and Lower Extremities Abdomen Description: Positive: Soft, McBurney's Point Tenderness, Other: - + obturator's, +psoas; pain on light palpation of the RLQ without pain in other quadrants. Negative CVA tenderness, no victoria;s sign, abdomen is soft and non- distended; no organomegaly; no guarding; no hernias visualized or bruits heard. Bowel Sounds: Positive: Present Musculoskeletal: Positive: Normal, Strength/ROM Intact Neurological: Positive: Sensory/Motor Intact, Speech Normal Psychiatric: Positive: Anxious - Patient is anxious about hospitals, scans and blood work - [place] Coma Scale Coma Scale Total: 15 Diagnostics - Vital Signs Vital Signs Temp Pulse Resp BP Pulse Ox 05/31/17 15:57 97.8 F 99 19 130/87 100 05/31/17 15:53 97.4 F 99 19 130/87 100 - Laboratory Lab Statement: Any lab studies that have been ordered have been reviewed, and results considered in the medical decision making process. Abdominal Pain Fem Course/Dx - Course Course Of Treatment: Patient notes to RLQ pain x 3 weeks which has been constant. Associated N/V daily x 3 weeks. Denies constipation/diarrhea. On physical exam + obturator's, +psoas; pain on light palpation of the RLQ without pain in other quadrants. Negative CVA tenderness, no victoria;s sign, abdomen is soft and non-distended; no organomegaly; no guarding; no hernias visualized or bruits heard. LMP x 2 months ago which is abnormal for patient. Hx of ovarian cysts. Discussed with patient treatment options and patient is currently refusing CT scan d/t history of ovarian cysts. At home test negative. US ordered and negative for any acute findings. Again, discussed treatment options and patient refused CT again stating she had CT 1 month ago for similar sxs and was negative. She prefers to follow up with OBGYN. Waited 2 hours for labs to be drawn. Upon learning the results of the US, patient requests to leave and is OK without labs drawn. Return precautions given. - Diagnoses Differential Diagnosis: Positive: Appendicitis, Constipation, Ectopic , Ovarian Cyst, Provider Diagnoses: Abdominal pain Discharge - Discharge Plan Condition: Stable Disposition: HOME Prescriptions: Ondansetron ODT TAB* [Zofran 4 MG Odt TAB*] 4 mg PO Q6H PRN #20 tab.odt MDD 4 PRN Reason: Nausea traMADol TAB* [Ultram*] 50 mg PO Q8H PRN #12 tab MDD 3 PRN Reason: Pain Patient Education Materials: Acute Abdominal Pain (ED) Referrals: CORNELIO Melgoza [Primary Care Provider] - Emil Gallo MD [Medical Doctor] - Additional Instructions: Follow up with Dr Gallo for persistent sxs. If you develop worsening nausea, vomiting, abdominal pain or you develop a fever , return to ED. Zofran as needed for nausea If you are having episodes of vomiting, you may become dehydrated. Drink plenty of fluids. If you feel you cannot keep enough fluids down, you may supplement with drinks like Gatorade or V8 juice. This will help balance your electrolytes which are lost during dehydration. Take any medication prescribed to you as directed. Ildefonso: This medicine may make you dizzy. Do not drive or do anything else that could be dangerous until you know how this medicine affects you. Slowly introduce foods into your diet that you can tolerate. Examples of low reactive foods are crackers, soup, rice, and breads. If you have any questions regarding your medications, you may call the office or your pharmacist. If your symptoms fail to improve or worsen, please call your primary care provider or seek other medical attention. Tramadol as needed for pain.
[2017-05-31 17:33] LABS: Urine Bilirubin Negative (Negative); Urine Glucose Negative (Negative); Urine Nitrite Negative (Negative)
--- NOTE | 2017-05-31 17:50 | RAD ---
HISTORY: Right lower quadrant pain COMPARISONS: None TECHNIQUE: Multiple transverse and longitudinal ultrasound images were obtained of the right lower quadrant using grayscale and color Doppler imaging. FINDINGS: The appendix is not visualized. There is no free or loculated fluid within the right lower quadrant. IMPRESSION: THE APPENDIX IS NOT VISUALIZED. THERE IS NO FREE OR LOCULATED FLUID WITHIN THE RIGHT LOWER QUADRANT.
--- NOTE | 2017-05-31 17:52 | RAD ---
HISTORY: Right lower quadrant pain, history of ovarian cyst COMPARISONS: January 28, 2017 TECHNIQUE: Multiple transverse and longitudinal ultrasound images were obtained of the pelvis using grayscale, color Doppler, and spectral Doppler imaging using the endovaginal transducer. FINDINGS: UTERUS: The uterus measures 5.6 x 2.6 x 2.8 cm. The uterus is normal in shape, size, contour, and echotexture. ENDOMETRIUM: The endometrial stripe is smooth. The endometrium measures 0.9 cm in thickness. CUL-DE-SAC: There is no free fluid within the cul-de-sac. RIGHT OVARY: The right ovary measures 3.5 x 2.9 x 2.9 cm. Normal arterial and venous waveforms are identifiable within the ovary on spectral Doppler imaging. LEFT OVARY: The left ovary measures 2.5 x 1.6 x 2.4 cm. Spectral evaluation of the left ovary is technically limited. BLADDER: The bladder is not well visualized. IMPRESSION: UNREMARKABLE ULTRASOUND OF THE PELVIS. NO SONOGRAPHIC FEATURES OF TORSION IN THE RIGHT OVARY. PLEASE NOTE THAT PARTIAL OR INTERMITTENT TORSION MAY BE SONOGRAPHICALLY NORMAL.
[2017-05-31 18:36] LABS: Hematocrit 38 % (35-47); Hemoglobin 12.8 g/dl (12.0-16.0); Mean Corpuscular HGB Conc 34 g/dl (31-36); Mean Corpuscular Hemoglobin 32 pg (27-31); Mean Corpuscular Volume 93 fL (80-97); Mean Platelet Volume 7 um3 (7.4-10.4); Red Blood Count 4.05 10^6/ul (4.0-5.4); Red Cell Distribution Width 12 % (10.5-15); White Blood Count 10.4 10^3/ul (3.5-10.8)
[2017-05-31 18:53] LABS: ALT 14 U/L (7-52); AST 16 U/L (13-39); Albumin 4.4 g/dL (3.2-5.2); Alkaline Phosphatase 52 U/L (34-104); Anion Gap 7 mmol/L (2-11); BUN/Creatinine Ratio 11.4 (8-20); Blood Urea Nitrogen 10 mg/dL (6-24); C Reactive Protein 1.08 mg/L (< 5.00); CO2 Carbon Dioxide 26 mmol/L (22-32); Calcium 9.6 mg/dL (8.6-10.3); Chloride 103 mmol/L (101-111); EGFR African American 101.5 (>60); EGFR Non-African American 78.9 (>60); Globulin 3.7 g/dL (2-4); Glucose 77 mg/dL (70-100); Lipase 29 U/L (11.0-82.0); Potassium 3.4 mmol/L (3.5-5.0); Sodium 136 mmol/L (133-145); Total Protein 8.1 g/dL (6.4-8.9)
[2017-05-31 19:02] VITALS: BP 123/72
== END 2017-05-31 19:02 | disposition home or self-care (01) ==
LOC: ED 15:51
DX: R10.31 Right lower quadrant pain (principal); R11.2 Nausea with vomiting, unspecified; Z87.891 Personal history of nicotine dependence
CPT/HCPCS: 36415; 76705; 76830; 80053; 81003; 83690; 84702; 85025; 86140; 99282

== ENCOUNTER 2017-08-16 16:51 | Emergency (ER) | payer MEDICAID ==
[2017-08-16 18:27] VITALS: BP 123/69
--- NOTE | 2017-08-16 18:58 | UC ---
Abdominal Pain Female HPI - HPI Summary HPI Summary: intermit. episode of vomiting after eating for the past week, other in her work have been sick as well, no diarrhea or fevers, ate [employer] today and had a emesis of some of the food - History of Current Complaint Chief Complaint: UCGeneralIllness Stated Complaint: VOMITING,DIZZINESS Time Seen by Provider: 08/16/17 18:52 Hx Obtained From: Patient Hx Last Menstrual Period: 08/02/17 ?: No Onset/Duration: Gradual Onset, Lasting Days, Still Present Timing: Intermittent Episodes Lasting: Severity Initially: Mild Severity Currently: Mild Location: Diffuse Radiates: No Character: Cramping Aggravating Factor(s): Food Alleviating Factor(s): Nothing Associated Signs and Symptoms: Positive: Vomiting. Negative: Diaphoresis, Fever , Back Pain, Urinary Symptoms, Decreased Appetite, Vaginal Discharge, Diarrhea Allergies/Adverse Reactions: Allergies Allergy/AdvReac Type Severity Reaction Status Date / Time Dicyclomine [From Bentyl] Allergy Shakes Verified 08/16/17 18:27 laxative Allergy Altered Uncoded 08/16/17 18:27 Mental Status Home Medications: Home Medications Acetaminophen [Acetaminophen Extra Stren] 500 mg PO Q6H PRN 08/16/17 [History Confirmed 08/16/17] Cetirizine* [ZyrTEC 10 MG TAB*] 10 mg PO DAILY 08/16/17 [History Confirmed 08/16] Misc. Devices [Nasal [place] Pump 30Ml/Met] 1 mis XX DAILY PRN 08/16/17 [History Confirmed 08/16/17] Yksbtiytuijye-Hkvywcjyaa-[id number] [Daytime/Nite Time Cold/Fl] 30 ml PO BID PRN [History Confirmed 08/16/17] PMH/Surg Hx/FS Hx/Imm Hx Previously Healthy: No Respiratory History: Asthma - Surgical History Surgical History: Yes Surgery Procedure, Year, and Place: D&C, 2012, [facility] - Family History Known Family History: Positive: Cardiac Disease, Hypertension, Diabetes, Respiratory Disease - Social History Occupation: Employed Full-time - At [employer] Lives: With Family Alcohol Use: Rare Substance Use Type: None Smoking Status (MU): Former Smoker Type: Cigarettes Have You Smoked in the Last Year: Yes When Did the Patient Quit Smoking/Using Tobacco: 1 YR AGO - Immunization History Most Recent Influenza Vaccination: JUL 2016 Review of Systems Constitutional: Negative Skin: Negative Eyes: Negative ENT: Negative Respiratory: Negative Cardiovascular: Negative Gastrointestinal: Abdominal Pain, Vomiting Genitourinary: Negative Motor: Negative Neurovascular: Negative Musculoskeletal: Negative Neurological: Negative Psychological: Negative Is Patient Immunocompromised?: No All Other Systems Reviewed And Are Negative: Yes Physical Exam Triage Information Reviewed: Yes Appearance: Well-Appearing, No Pain Distress, Obese Vital Signs: Initial Vital Signs Temp 98.7 F 08/16/17 18:18 Pulse 85 08/16/17 18:18 Resp 16 08/16/17 18:18 BP 123/69 08/16/17 18:18 Pulse Ox 100 08/16/17 18:18 Vital Signs Reviewed: Yes Eye Exam: Normal Eyes: Positive: Conjunctiva Clear ENT Exam: Normal ENT: Positive: Normal ENT inspection, Hearing grossly normal, TMs normal. Negative: Pharynx normal, Nasal congestion, Nasal drainage, Trismus, Muffled/ hoarse voice Dental Exam: Normal Neck exam: Normal Neck: Positive: Supple, Nontender, No Lymphadenopathy Respiratory Exam: Normal Respiratory: Positive: Chest non-tender, Lungs clear, Normal breath sounds, No respiratory distress, No accessory muscle use Cardiovascular Exam: Normal Cardiovascular: Positive: RRR, No Murmur, Pulses Normal, Brisk Capillary Refill Abdominal Exam: Normal Abdomen Description: Positive: No Organomegaly, Soft. Negative: CVA Tenderness (R), CVA Tenderness (L), Distended, Hepatomegaly, McBurney's Point Tenderness, Peritoneal Signs Bowel Sounds: Positive: Present Musculoskeletal Exam: Normal Musculoskeletal: Positive: Strength Intact, ROM Intact, No Edema Neurological Exam: Normal Neurological: Positive: Alert, Muscle Tone Normal Psychological Exam: Normal Skin Exam: Normal Abd Pain Female Course/Dx - Course Course Of Treatment: ok to try clear liquids for 12 hours should symptoms fail to resolve of worsen tonight in any way to go the emergency department for further evaluation - Differential Dx/Diagnosis Differential Diagnosis: Appendicitis, Bowel Obstruction, Gall Bladder Disease, Irritable Bowel Syndrome, Pancreatitis Provider Diagnoses: Acute abd pain Discharge - Discharge Plan Condition: Stable Disposition: HOME Patient Education Materials: Clear Liquid Diet (ED), Acute Abdominal Pain (ED) Referrals: CORNELIO Cortes [Primary Care Provider] - 2 Days Additional Instructions: It is not clear the exact cause of your abdomen pain and vomiting---A short trial of clear liquids is reasonable (8-10 hours) to see if this improves and you are able to keep the liquids down. If you are unable to manage clear liquids , pain continues or worsens in you feel worse in any way or not improving please report directly to the hospital
== END 2017-08-16 19:16 | disposition home or self-care (01) ==
LOC: UCCORT 16:51
DX: R10.9 Unspecified abdominal pain (principal); Z32.02 Encounter for pregnancy test, result negative
CPT/HCPCS: 81003; 84702; 99211; G0463

== ENCOUNTER 2017-11-21 14:05 | Emergency (ER) | payer MEDICAID, OTHER ==
[2017-11-21 14:29] VITALS: BP 117/67
--- NOTE | 2017-11-21 14:30 | UC ---
HPI Febrile Illness - HPI Summary HPI Summary: 22 year old female presents with complains of sinus congestion and cough. - History of Current Complaint Chief Complaint: UCGeneralIllness Time Seen by Provider: 11/21/17 14:29 Hx Obtained From: Patient Hx Last Menstrual Period: 08/02/17 Onset/Duration: Started Hours Ago Timing: Constant Initial Severity: Moderate Current Severity: Moderate Aggravating Factors: Nothing Alleviating Factors: Nothing Associated Signs and Symptoms: Negative - Allergy/Home Medications Allergies/Adverse Reactions: Allergies Allergy/AdvReac Type Severity Reaction Status Date / Time Dicyclomine [From Bentyl] Allergy Shakes Verified 11/21/17 14:21 laxative Allergy Altered Uncoded 11/21/17 14:21 Mental Status Home Medications: Home Medications Vitamin [Calna] 1 tab DAILY 11/21/17 [History Confirmed 11/21/17] PMH/Surg Hx/FS Hx/Imm Hx Previously Healthy: Yes - Surgical History Surgical History: Yes Surgery Procedure, Year, and Place: D&C, 2012, [facility] - Family History Known Family History: Positive: Cardiac Disease, Hypertension, Diabetes, Respiratory Disease - Social History Alcohol Use: None Substance Use Type: None Smoking Status (MU): Former Smoker Type: Cigarettes Have You Smoked in the Last Year: Yes When Did the Patient Quit Smoking/Using Tobacco: 1 YR AGO - Immunization History Most Recent Influenza Vaccination: 2017 Review of Systems Constitutional: Negative Skin: Negative Eyes: Negative ENT: Sore Throat, Ear Ache, Nasal Discharge, Sinus Congestion, Sinus Pain/ Tenderness Respiratory: Negative Cardiovascular: Negative Gastrointestinal: Negative Genitourinary: Negative Motor: Negative Neurovascular: Negative Musculoskeletal: Negative Neurological: Negative Psychological: Negative All Other Systems Reviewed And Are Negative: Yes Physical Exam Triage Information Reviewed: Yes Vital Signs: Initial Vital Signs Temp 36.5 C 11/21/17 14:22 Pulse 84 11/21/17 14:22 Resp 16 11/21/17 14:22 BP 117/67 11/21/17 14:22 Pulse Ox 100 11/21/17 14:22 Vital Signs Reviewed: Yes Eye Exam: Normal ENT: Positive: Pharyngeal erythema, Nasal congestion, Nasal drainage, Sinus tenderness Dental Exam: Normal Neck exam: Normal Neck: Positive: 1 Respiratory Exam: Normal Cardiovascular Exam: Normal Abdominal Exam: Normal Musculoskeletal Exam: Normal Neurological Exam: Normal Psychological Exam: Normal Skin Exam: Normal Course/Dx - Diagnoses Clinic Provider Diagnoses: sinus congestion. post nasal drip. sore throat Discharge - Discharge Plan Condition: Stable Disposition: HOME Patient Education Materials: Allergic Rhinitis (ED) Forms: *Work Release Referrals: CORNELIO Cortes [Primary Care Provider] -
--- NOTE | 2017-11-24 07:10 | ED ---
Progress - Progress Note Progress Note: throat cx (-).
== END 2017-11-21 15:01 | disposition home or self-care (01) ==
LOC: UCCORT 14:05
DX: J34.89 Other specified disorders of nose and nasal sinuses (principal); R09.82 Postnasal drip; J02.9 Acute pharyngitis, unspecified; Z87.891 Personal history of nicotine dependence
CPT/HCPCS: 87070; 87502; 87651; 99211; G0463

== ENCOUNTER 2017-11-26 18:27 | Emergency (ER) | payer OTHER ==
[2017-11-26 18:45] VITALS: BP 120/56
--- NOTE | 2017-11-26 19:15 | UC ---
FLU HPI - HPI Summary HPI Summary: 22 year old 6 week female presents with complains of fever, chills, shakiness and falling at work. I will send her to the er. - History of Current Complaint Chief Complaint: UCGeneralIllness Stated Complaint: HEADACHE/CHILLS/SHAKY/FELL AT WORK Time Seen by Provider: 11/26/17 19:14 Hx Obtained From: Patient Hx Last Menstrual Period: 08/02/17 Onset/Duration: Sudden Onset Severity Currently: Moderate Severity Initially: Moderate Associated Signs & Symptoms: Positive: Fever, Cough, Headache - Allergy/Home Medications Allergies/Adverse Reactions: Allergies Allergy/AdvReac Type Severity Reaction Status Date / Time Dicyclomine [From Bentyl] Allergy Shakes Verified 11/26/17 18:45 laxative Allergy Altered Uncoded 11/26/17 18:45 Mental Status PMH/Surg Hx/FS Hx/Imm Hx Previously Healthy: Yes - Surgical History Surgical History: Yes Surgery Procedure, Year, and Place: D&C, 2012, [facility] - Family History Known Family History: Positive: Cardiac Disease, Hypertension, Diabetes, Respiratory Disease - Social History Alcohol Use: None Substance Use Type: None Smoking Status (MU): Former Smoker Type: Cigarettes Have You Smoked in the Last Year: Yes When Did the Patient Quit Smoking/Using Tobacco: 1 YR AGO - Immunization History Most Recent Influenza Vaccination: 2017 Review of Systems Constitutional: Negative Skin: Negative Eyes: Negative ENT: Sore Throat, Nasal Discharge, Sinus Congestion, Sinus Pain/Tenderness Respiratory: Cough Cardiovascular: Negative Gastrointestinal: Negative Genitourinary: Negative Motor: Negative Neurovascular: Negative Musculoskeletal: Negative Neurological: Negative Psychological: Negative All Other Systems Reviewed And Are Negative: Yes Physical Exam Triage Information Reviewed: Yes Vital Signs: Initial Vital Signs Temp 36.7 C 11/26/17 18:39 Pulse 78 11/26/17 18:39 Resp 18 11/26/17 18:39 BP 120/56 11/26/17 18:39 Pulse Ox 100 11/26/17 18:39 Vital Signs Reviewed: Yes Eye Exam: Normal ENT: Positive: Pharyngeal erythema, Nasal congestion, Nasal drainage, Sinus tenderness Dental Exam: Normal Neck exam: Normal Neck: Positive: 1 Respiratory Exam: Normal Cardiovascular Exam: Normal Abdominal Exam: Normal Musculoskeletal Exam: Normal Neurological Exam: Normal Psychological Exam: Normal Skin Exam: Normal Flu Course/Dx - Differential Dx/Diagnosis Provider Diagnoses: fever. chills. body aches Discharge - Discharge Plan Condition: Stable Disposition: OTHER Discharge Disposition Comment: patient suggested to go to the er. Patient Education Materials: Lightheadedness (ED), Dizziness (ED) Referrals: CORNELIO Cortes [Primary Care Provider] - Additional Instructions: patient suggested to go to the er for dizziness and fainting.
== END 2017-11-26 19:31 ==
LOC: UCCORT 18:27
DX: O26.891 Other specified pregnancy related conditions, first trimester (principal); R50.9 Fever, unspecified; M79.1 Myalgia; Z3A.01 Less than 8 weeks gestation of pregnancy; Z87.891 Personal history of nicotine dependence
CPT/HCPCS: 99212; G0463

== ENCOUNTER 2019-11-21 12:31 | Emergency (ER) | payer OTHER ==
[2019-11-21 13:17] VITALS: BP 118/70
--- NOTE | 2019-11-21 14:26 | UC ---
Respiratory Complaint HPI - HPI Summary HPI Summary: 24-year-old female with head and chest congestion worse today. Patient states she hasn't felt well all week. She thinks that she has missed a period but she' s not sure because her periods are irregular. She denies any fever. - History of Current Complaint Chief Complaint: UCRespiratory Stated Complaint: WEAKNESS, SOB, COUGH Time Seen by Provider: 11/21/19 14:20 Hx Obtained From: Patient Hx Last Menstrual Period: 10/07/19 ?: No Onset/Duration: Gradual Onset Timing: Constant Severity Initially: Mild Severity Currently: Mild Pain Intensity: 7 Character: Cough: Nonproductive Aggravating Factors: Exertion, Deep Breaths Alleviating Factors: Nothing Associated Signs And Symptoms: Positive: URI, Nasal Congestion - Allergies/Home Medications Allergies/Adverse Reactions: Allergies Allergy/AdvReac Type Severity Reaction Status Date / Time dicyclomine Allergy See Comment Verified 11/21/19 13:09 laxative Allergy Altered Uncoded 11/21/19 13:09 Mental Status Home Medications: Home Medications Albuterol HFA INHALER* [Ventolin HFA Inhaler*] 1 puff Q4H PRN 11/21/19 [History Confirmed 11/21/19] Budesonide/Formote 160/4.5(NF) [Symbicort 160/4.5 (NF)] 1 puff DAILY 11/21/19 [ History Confirmed 11/21/19] Sertraline* [Zoloft*] 1 tab DAILY 11/21/19 [History Confirmed 11/21/19] PMH/Surg Hx/FS Hx/Imm Hx Previously Healthy: Yes - Surgical History Surgical History: Yes Surgery Procedure, Year, and Place: D&C, 2012, [facility]. C- section, 2018 - Family History Known Family History: Positive: Cardiac Disease, Hypertension, Diabetes, Respiratory Disease - Social History Alcohol Use: None Substance Use Type: None Smoking Status (MU): Current Some Day Smoker Type: Cigarettes Length of Time of Smoking/Using Tobacco: 1 cig every 3 months Have You Smoked in the Last Year: Yes When Did the Patient Quit Smoking/Using Tobacco: 1 YR AGO - Immunization History Most Recent Influenza Vaccination: 2017 Review of Systems All Other Systems Reviewed And Are Negative: Yes ENT: Positive: Nasal Discharge Respiratory: Positive: Cough Is Patient Immunocompromised?: No Physical Exam Triage Information Reviewed: Yes Appearance: Well-Appearing, No Pain Distress, Well-Nourished Vital Signs: Initial Vital Signs Temp 97.3 F 11/21/19 13:10 Pulse 69 11/21/19 13:10 Resp 20 11/21/19 13:10 BP 118/70 11/21/19 13:10 Pulse Ox 100 11/21/19 13:10 Vital Signs Reviewed: Yes Eyes: Positive: Conjunctiva Clear ENT: Positive: Pharynx normal, Nasal drainage, TMs normal, Uvula midline Neck: Positive: Supple, Nontender, No Lymphadenopathy Respiratory: Positive: Lungs clear, Normal breath sounds, No respiratory distress, No accessory muscle use Cardiovascular: Positive: RRR, No Murmur, Pulses Normal, Brisk Capillary Refill Musculoskeletal Exam: Normal Neurological Exam: Normal Psychological Exam: Normal Skin Exam: Normal Respiratory Course/Dx - Course Course Of Treatment: Chest x-ray:FINDINGS: The heart and mediastinum are normal in size and contour. The lungs are grossly clear. There is no evidence of large pleural effusion. Visualized bones are normal for the patient's age. There is no radiographic evidence of free air beneath the diaphragm IMPRESSION: No radiographic evidence of acute cardiopulmonary disease. Patient is comfortable here and in no distress. - Differential Dx/Diagnosis Provider Diagnosis: Bronchitis Discharge ED - Sign-Out/Discharge Documenting (check all that apply): Patient Departure All imaging exams completed and their final reports reviewed: Yes - Discharge Plan Condition: Good Disposition: HOME Prescriptions: Albuterol HFA INHALER* [Ventolin HFA Inhaler*] 2 puff INH Q4H PRN 5 Days #1 mdi PRN Reason: Wheezing Patient Education Materials: Acute Bronchitis (ED) Forms: *Work Release Referrals: Nguyễn Acosta MD [Primary Care Provider] - Additional Instructions: Increase fluids, rest, take Motrin every 8 hours for pain. Use her albuterol inhaler 2 puffs every 4-6 hours as needed for tight cough or wheezing. Follow- up with your primary care provider in 2 or 3 days if no improvement. - Billing Disposition and Condition Condition: GOOD Disposition: Home
== END 2019-11-21 15:26 | disposition home or self-care (01) ==
LOC: UCCORT 12:31
DX: J40 Bronchitis, not specified as acute or chronic (principal); R09.81 Nasal congestion; F17.210 Nicotine dependence, cigarettes, uncomplicated; Z88.8 Allergy status to other drugs, medicaments and biological substances
CPT/HCPCS: 71046; 84702; 99212; G0463